=== PATIENT | male | born 1965 | race Caucasian/White ===

== ENCOUNTER 2019-11-10 09:32 | Day surgery (SDC) | payer BC ==
[~2019-11-10] VITALS: Ht 167.6 cm; Wt 89.5 kg
[~2019-11-10 09:32] MED LIST: ALPR.25 PO; ALPR.5; ALPR.5 PO; ATOR20 PO; Aspir 8181 MG PO; CARV25 PO; IMIP25 PO; IMIP50; LISI20 PO; PERM5TC TOP
--- NOTE | 2019-11-10 15:25 | NUR ---
DISCHARGE PT REMAIND A&OX3 AND DENIED PAIN DURING RECOVERY. R RADIAL-TR BAND REMOVED-REPLACED WITH CLOTH DOT BANDAGE AND WHITE BOARD. IV DC'S WITH CANULA IN TACT. DISCHARGE PAPERWORK GONE OVER WITH PT. PT VERBALLY STATED THE UNDERSTANDING OF THE DISCHARGE EDUCATION AND DENIED ANY QUESTIONS AT THIS TIME. PT ABLE TO DRESS SELF INDEPENDANTLY. THIS NURSE WHEELED PT OUT.
== END 2019-11-10 15:35 | disposition home or self-care (01) ==
LOC: MHTC 09:32
DX: I25.10 Atherosclerotic heart disease of native coronary artery without angina pectoris (principal); I42.9 Cardiomyopathy, unspecified; I25.82 Chronic total occlusion of coronary artery; I11.0 Hypertensive heart disease with heart failure; I50.20 Unspecified systolic (congestive) heart failure; E78.5 Hyperlipidemia, unspecified; F17.210 Nicotine dependence, cigarettes, uncomplicated; F41.9 Anxiety disorder, unspecified; Z79.899 Other long term (current) drug therapy; Z88.8 Allergy status to other drugs, medicaments and biological substances
CPT/HCPCS: 76937; 85347; 93005; 93010; 93458; 99152; 99153; C1769; C1894; J1644; J2250; J3010; J7030; Q9967

== ENCOUNTER 2020-07-18 09:28 | Emergency (ER) | payer BC ==
[~2020-07-18] VITALS: Ht 167.6 cm; Wt 90.7 kg
[2020-07-18] MEDS ORDERED: METO100ER PO (09:46)
[2020-07-18] MEDS ORDERED: ENTRESTO 49 MG PO (09:47)
[2020-07-18] MEDS ORDERED: CARTIA XT120 MG PO (09:49)
[2020-07-18 10:10] LABS: BASOPHILS ABSOLUTE AUTO 0.04 K/mm3 (0.00-0.23); BASOPHILS PERCENT AUTO 1 % (0-2); EOSINOPHILS ABSOLUTE AUTO 0.29 K/mm3 (0.00-0.68); EOSINOPHILS PERCENT AUTO 5 % (0-6); Hematocrit 45.3 % (37.0-53.0); Hemoglobin 14.7 g/dL (13.5-17.5); IMMATURE GRAN ABSOLUTE AUTO 0.02 K/mm3 (0.00-0.10); IMMATURE GRAN PERCENT AUTO 0 % (0-1); LYMPHOCYTES ABSOLUTE AUTO 1.52 K/mm3 (0.84-5.20); LYMPHOCYTES PERCENT AUTO 26 % (21-46); MONOCYTES PERCENT AUTO 9 % (4-13); Mean Corpuscular HGB Conc 32.5 g/dL (31.5-36.5); Mean Corpuscular Volume 80 fL (80-100); Mean Platelet Volume 9.2 fL (9.1-12.4); NEUTROPHILS ABSOLUTE AUTO 3.39 K/mm3 (1.96-9.15); NEUTROPHILS PERCENT AUTO 59 % (41-73); Platelet Count 226 K/mm3 (150-400); RDW Coefficient Variation 15.5 % (11.7-14.2); RDW Standard Deviation 44.1 fL (35.1-46.3); Red Blood Cell Count 5.66 M/mm3 (4.30-5.90); White Blood Cell Count 5.76 K/mm3 (4.00-11.30)
[2020-07-18] MEDS ORDERED: ISOSORBIDE MONO30 MG PO (10:20)
[2020-07-18] MEDS ORDERED: ROPINIROLE HCL1 MG PO (10:20)
[2020-07-18 10:41] LABS: Alanine Aminotransfer (ALT/SGP 30 U/L (12-78); Albumin, Blood 3.4 g/dL (3.4-5.0); Albumin/Globulin Ratio 0.8 (0.8-1.8); Alk Phos 158 U/L (50-136); Anion Gap 4 mmol/L (6-16); Aspartate Aminotrans (AST/SGOT 24 U/L (12-37); Bilirubin, Total 0.5 mg/dL (0.1-1.0); Blood Urea Nitrogen 11 mg/dL (8-24); Bun/Creatinine Ratio 10.8 (12.0-20.0); CO2, Blood 28 mmol/L (21-32); Calcium, Blood 8.8 mg/dL (8.5-10.1); Chloride, Blood 106 mmol/L (98-108); Creatinine, Blood 1.02 mg/dL (0.60-1.20); Globulin, Blood 4.4 g/dL (2.2-4.0); Glomerular Filtration Rate >60 (60-); Glucose, Blood 113 mg/dL (70-99); Potassium, Blood 3.9 mmol/L (3.5-5.5); Sodium, Blood 138 mmol/L (136-145); Total Protein, Blood 7.8 g/dL (6.4-8.2); Troponin I <0.015 ng/mL (0.000-0.040)
[2020-07-18] MEDS ORDERED: IBUP400 PO (11:11)
== END 2020-07-18 11:26 | disposition home or self-care (01) ==
LOC: ER 09:28
PROVIDERS: Emergency Medicine
DX: I25.810 Atherosclerosis of coronary artery bypass graft(s) without angina pectoris (principal); I10 Essential (primary) hypertension; E11.9 Type 2 diabetes mellitus without complications; E78.00 Pure hypercholesterolemia, unspecified; Z79.899 Other long term (current) drug therapy; Z79.82 Long term (current) use of aspirin; Z88.8 Allergy status to other drugs, medicaments and biological substances; Z95.1 Presence of aortocoronary bypass graft; Z87.891 Personal history of nicotine dependence
CPT/HCPCS: 36415; 71046; 80053; 84484; 85025; 93005; 93010; 99284-25

== ENCOUNTER 2022-01-06 19:11 | Observation (INO) | payer BC ==
[~2022-01-06] VITALS: Ht 167.6 cm; Wt 87.9 kg
[~2022-01-06 19:11] MED LIST changes: +CARTIA XT120 MG PO; +CLOP75 PO; +ENTRESTO 49 MG PO; +ENTRESTO 97 MG1 EACH PO; +FARXIGA10 MG PO; +HYDR10 PO; +IBUP400 PO; +IMIP10 PO; -IMIP50; +ISOSORBIDE MONO30 MG PO; +Isosorbide Mono30 MG PO; +METO100ER PO; +NITR.4SL SL; +POTA10T PO; +ROPINIROLE HCL1 MG PO; +ROSUVASTATIN CA40 MG PO
[2022-01-06 20:41] LABS: Source, Urine Clean Catch
[2022-01-06 20:44] LABS: BASOPHILS ABSOLUTE AUTO 0.05 K/mm3 (0.00-0.23); BASOPHILS PERCENT AUTO 1 % (0-2); EOSINOPHILS ABSOLUTE AUTO 0.21 K/mm3 (0.00-0.68); EOSINOPHILS PERCENT AUTO 4 % (0-6); Hematocrit 31.9 % (37.0-53.0); Hemoglobin 10.7 g/dL (13.5-17.5); IMMATURE GRAN ABSOLUTE AUTO 0.01 K/mm3 (0.00-0.10); IMMATURE GRAN PERCENT AUTO 0 % (0-1); LYMPHOCYTES ABSOLUTE AUTO 1.06 K/mm3 (0.84-5.20); LYMPHOCYTES PERCENT AUTO 18 % (21-46); MONOCYTES ABSOLUTE AUTO 0.37 K/mm3 (0.16-1.47); MONOCYTES PERCENT AUTO 6 % (4-13); Mean Corpuscular HGB 27.5 pg (26.0-34.0); Mean Corpuscular HGB Conc 33.5 g/dL (31.5-36.5); Mean Corpuscular Volume 82 fL (80-100); NEUTROPHILS ABSOLUTE AUTO 4.07 K/mm3 (1.96-9.15); NEUTROPHILS PERCENT AUTO 71 % (41-73); Platelet Count 290 K/mm3 (150-400); RDW Coefficient Variation 14.6 % (11.7-14.2); RDW Standard Deviation 42.5 fL (35.1-46.3); Red Blood Cell Count 3.89 M/mm3 (4.30-5.90); White Blood Cell Count 5.77 K/mm3 (4.00-11.30)
[2022-01-06 20:54] LABS: Bilirubin, Urine Neg (Neg); Blood, Urine 3+ (Neg); Glucose Qualitative, Urine 1+ (Neg); Ketones, Urine Neg (Neg); Leukocyte Esterase, Urine Neg (Neg); Nitrite, Urine Neg (Neg); Protein, Urine 2+ (Neg); Specific Gravity, Urine 1.005 (1.003-1.022); Urobilinogen, Urine NORM (Normal)
[2022-01-06 21:02] LABS: Albumin, Blood 3.4 g/dL (3.4-5.0); Albumin/Globulin Ratio 0.8 (0.8-1.8); Bilirubin, Total 0.4 mg/dL (0.1-1.0); Bun/Creatinine Ratio 7.7 (12.0-20.0); Calcium, Blood 9.8 mg/dL (8.5-10.1); Creatinine, Blood 1.82 mg/dL (0.60-1.20); Globulin, Blood 4.4 g/dL (2.2-4.0); Potassium, Blood 3.4 mmol/L (3.5-5.5); Total Protein, Blood 7.8 g/dL (6.4-8.2)
[2022-01-06 21:04] LABS: Appearance, Urine Clear (Clear); Color, Urine Pale Yellow (P-Yellow)
[2022-01-06 21:05] LABS: Bacteria Not Seen /hpf; Squamous Epithelial Cells Not Seen /hpf (Few); White Blood Cells, Urine Not Seen /hpf (0-5)
--- NOTE | 2022-01-07 00:06 | NUR ---
0005:REPORT RECIEVED FROM ETHAN ADAMES (ED)
--- NOTE | 2022-01-07 01:40 | NUR ---
0025: PT ARRIVED FROM ED TO MED FLOOR ROOM 332. PT TRANSFERED VIA W/C. AMBULATES IND IN ROOM. PT DENIES DIZZINESS/LIGHTHEADEDNESS. VSS. MILD HTN. DENIES CHEST PAIN, SOB,NUMBNESS AND TINGLING SENSATION. NPO. MEDS WHOLE. KDUR AND XANAX GIVEN. DENIES NAUSEA AND VOMITING. TELE ON: SR AT 70'S PER BASIN FINISH OPERATOR TIG WELDER MARIO. SCD'S. IV ON L AC, PATENT AND FLUSHING. REORIENT IN ROOM.AOX4. CALL LIGHT WITHIN REACH. WILL CONTINUE TO MONITOR.
[2022-01-07 05:37] LABS: Albumin, Blood 3.2 g/dL (3.4-5.0); Albumin/Globulin Ratio 0.8 (0.8-1.8); Bilirubin, Total 0.5 mg/dL (0.1-1.0); Bun/Creatinine Ratio 7.9 (12.0-20.0); Calcium, Blood 9.5 mg/dL (8.5-10.1); Creatinine, Blood 1.77 mg/dL (0.60-1.20); Globulin, Blood 4.2 g/dL (2.2-4.0); Potassium, Blood 3.3 mmol/L (3.5-5.5); Total Protein, Blood 7.4 g/dL (6.4-8.2)
--- NOTE | 2022-01-07 05:48 | NUR ---
0530: HOUSEKEEPING DEPARTMENT WORKER MARIO CALLED STATING THAT THE PT HAD EPISODE OF ST ELEVATION. CAME TO SEE PT IN ROOM. COMFORTABLE WATCHING TV, LYING IN BED. PT DENIES CHEST PAIN, SOB, DIZZINESS, LIGHTHEADEDNESS, NAUSEA AND VOMITING. PT IS ASYMPTOMATIC.
--- NOTE | 2022-01-07 05:52 | NUR ---
0545: CALLED PUBLIC HEALTH REGISTRAR, PT ON SR AT 70'S
--- NOTE | 2022-01-07 06:22 | NUR ---
SHIFT SUMMARY NO ACUTE CHANGES OVERNIGHT. PT REMAIN ASYMPTOMATIC T/O SHIFT. DENIES CHEST PAIN, SOB, LIGHT HEADEDNESS AND DIZZINESS. INDEPENDENT IN ROOM. SCD'S IN PLACE. PT REMAIN TO HAVE AN ELEVATED TROPONIN, TRENDING 207, 217, 203. BUREAU CHIEF CALLED AROUND 0530 STATING PT HAS EPISODE OF ELEVATED ST. NPO. VSS. PLAN FOR ECHO THIS MORNING AND TO SEE HEAT WELDER PLASTICS.
--- NOTE | 2022-01-07 16:10 | NUR ---
SHIFT SUMMARY PT AxOx4. PLEASANT AND COOPERATIVE WITH CARE. PT DENIES ANY CP THIS SHIFT. PT REPORTS ANXIETY. MEDICATED PER EMAR x1. PER DECORATOR STORE, TELE RUNNING SR @84. PT HAD ECHOCARDIOGRAM TODAY. CARDIOLOGY CONSULTED. IN ROOM THIS SHIFT AND UPDATED ON PLAN OF CARE. CURRENT PLAN IS FOR PATIENT TO STAY ANOTHER NIGHT FOR OBSERVATION. PT CURRENTLY RESTING IN ROOM WITH CALL LIGHT IN REACH. DENIES ANY NEEDS AT THIS TIME.
[2022-01-07] MEDS ORDERED: IMIPRAMINE HCL50 MG PO (17:40)
--- NOTE | 2022-01-08 03:23 | NUR ---
SHIFT SUMMARY NO ACUTE CHANGES OVERNIGHT. PT DENIES ANY CHEST PAIN, NUMBNESS, TINGLING SENSATION, AND SOB T/O SHIFT. PT REPORTS FEELNG LESS ANXIOUS AFTER SPEAKING TO DRY COLOR TESTER AND HOSPITALIST. AOX4. INDEPENDENT IN ROOM. VOIDING WITHOUT ISSUE. PT HAD BM. PT TOLERATING PO INTAKE, DENIES NAUSEA AND VOMITING. PT ALSO DENIES HEADACHE, LIGHTHEADEDNESS/DIZZINESS. USE CALL LIGHT APPROPRIATELY, ITS WITHIN REACH. SALINE LOCK. TELE ON SR AT 70'S. WILL PROVIDE REPORT TO ONCOMING NURSE.
[2022-01-08 08:53] LABS: Calcium, Blood 9.8 mg/dL (8.5-10.1); Creatinine, Blood 1.58 mg/dL (0.60-1.20); Potassium, Blood 3.3 mmol/L (3.5-5.5)
[2022-01-08] MEDS ORDERED: ENTRESTO 24 MG1 EACH PO (12:04)
--- NOTE | 2022-01-08 14:13 | NUR ---
DISCHARGE SUMMARY IV AND TELE REMOVED PRIOR TO DISCHARGE. DISCHARGE EDUCATION REVIEWED WITH AND SIGNED BY PT. PERSONAL BELONGINGS GATHERED AND TAKEN WITH PT DOWNSTAIRS TO MEET RIDE. RIDE PROVIDED BY PT'S . RX FAXED TO [facility] IN [place].
== END 2022-01-08 12:46 | disposition home or self-care (01) ==
LOC: ER 19:11 → MEDS 19:12
PROVIDERS: Emergency Medicine; Internal Medicine; Student in an Organized Health Care Education/Training Program; ADMIT Family Medicine
DX: R06.00 Dyspnea, unspecified (principal); R79.89 Other specified abnormal findings of blood chemistry; E87.6 Hypokalemia; I25.10 Atherosclerotic heart disease of native coronary artery without angina pectoris; E78.5 Hyperlipidemia, unspecified; I25.5 Ischemic cardiomyopathy; I13.0 Hypertensive heart and chronic kidney disease with heart failure and stage 1 through stage 4 chronic kidney disease, or unspecified chronic kidney disease; E11.22 Type 2 diabetes mellitus with diabetic chronic kidney disease; I50.20 Unspecified systolic (congestive) heart failure; N18.4 Chronic kidney disease, stage 4 (severe); Z95.1 Presence of aortocoronary bypass graft; Z95.5 Presence of coronary angioplasty implant and graft; Z87.891 Personal history of nicotine dependence
CPT/HCPCS: 36415; 71045; 80048; 80053; 81001; 83880; 84484; 85025; 93005; 93010; 93308; 99284-25; A9270; G0378

== ENCOUNTER 2022-01-11 12:42 | Emergency (ER) | payer BC ==
[~2022-01-11] VITALS: Ht 167.6 cm; Wt 85.3 kg
[~2022-01-11 12:42] MED LIST changes: +ENTRESTO 24 MG1 EACH PO; +IMIPRAMINE HCL50 MG PO
[2022-01-11 13:18] LABS: BASOPHILS ABSOLUTE AUTO 0.05 K/mm3 (0.00-0.23); BASOPHILS PERCENT AUTO 1 % (0-2); EOSINOPHILS ABSOLUTE AUTO 0.25 K/mm3 (0.00-0.68); EOSINOPHILS PERCENT AUTO 4 % (0-6); Hematocrit 39.9 % (37.0-53.0); Hemoglobin 13.5 g/dL (13.5-17.5); IMMATURE GRAN ABSOLUTE AUTO 0.01 K/mm3 (0.00-0.10); IMMATURE GRAN PERCENT AUTO 0 % (0-1); LYMPHOCYTES ABSOLUTE AUTO 2.26 K/mm3 (0.84-5.20); LYMPHOCYTES PERCENT AUTO 31 % (21-46); MONOCYTES ABSOLUTE AUTO 0.53 K/mm3 (0.16-1.47); MONOCYTES PERCENT AUTO 7 % (4-13); Mean Corpuscular HGB 27.8 pg (26.0-34.0); Mean Corpuscular HGB Conc 33.8 g/dL (31.5-36.5); Mean Corpuscular Volume 82 fL (80-100); Mean Platelet Volume 9.2 fL (9.1-12.4); NEUTROPHILS ABSOLUTE AUTO 4.11 K/mm3 (1.96-9.15); NEUTROPHILS PERCENT AUTO 57 % (41-73); Platelet Count 384 K/mm3 (150-400); RDW Coefficient Variation 14.6 % (11.7-14.2); RDW Standard Deviation 42.9 fL (35.1-46.3); Red Blood Cell Count 4.85 M/mm3 (4.30-5.90); White Blood Cell Count 7.21 K/mm3 (4.00-11.30)
[2022-01-11 13:36] LABS: Albumin, Blood 3.9 g/dL (3.4-5.0); Albumin/Globulin Ratio 0.8 (0.8-1.8); Bilirubin, Total 0.3 mg/dL (0.1-1.0); Bun/Creatinine Ratio 12.1 (12.0-20.0); Calcium, Blood 10.1 mg/dL (8.5-10.1); Creatinine, Blood 1.82 mg/dL (0.60-1.20); Globulin, Blood 4.8 g/dL (2.2-4.0); Potassium, Blood 4.4 mmol/L (3.5-5.5); Total Protein, Blood 8.7 g/dL (6.4-8.2)
== END 2022-01-11 16:08 | disposition home or self-care (01) ==
LOC: ER 12:42
PROVIDERS: Student in an Organized Health Care Education/Training Program
DX: R06.02 Shortness of breath (principal); I10 Essential (primary) hypertension; Z88.8 Allergy status to other drugs, medicaments and biological substances; Z79.899 Other long term (current) drug therapy; Z87.891 Personal history of nicotine dependence; Z95.1 Presence of aortocoronary bypass graft; Z95.5 Presence of coronary angioplasty implant and graft
CPT/HCPCS: 36415; 71045; 80053; 83880; 84484; 85025; 85379

== ENCOUNTER → 2023-01-12 | Outpatient (CLI) | payer OTHER ==
[2023-01-12 16:31] LABS: U Amphetamine Screen Not Detected; U Barbituate Screen Not Detected; U Benzodiazapine Screen DETECTED; U Buprenorphine Screen Not Detected; U Cannabinoids Screen Not Detected; U Cocaine Screen Not Detected; U Methadone Screen Not Detected; U Methamphetamine Screen Not Detected; U Opiates Screen DETECTED; U Oxycodone Screen Not Detected; U Phencyclidine Screen Not Detected; U Propoxyphene Screen Not Detected
== END ==
LOC: LAB SHORT 12:26 → LAB 12:26
PROVIDERS: Nurse Practitioner Family
DX: Z51.81 Encounter for therapeutic drug level monitoring (principal); Z79.899 Other long term (current) drug therapy